=== PATIENT | male | born 1955 | race Caucasian/White ===

== ENCOUNTER → 2017-09-12 10:15 | Outpatient (CLI) | payer OTHER, SELFPAY ==
--- NOTE | 2017-09-12 10:19 | FL_ITS ---
FL upper GI series w/o air HISTORY: ITS.REASON: EPIGASTRIC PAIN ORDERING PHYSICIAN: Florentino Hill MD PATIENT AGE: 62 years Comparison: None FINDINGS: The esophagus, stomach, and duodenum have an unremarkable appearance. There is a small hiatal hernia. There was moderate gastroesophageal reflux noted during the exam. No ulcer or mass evident. No mucosal abnormalities apparent. There is normal peristalsis. The duodenal C-loop is nondisplaced. FLUOROSCOPY TIME : 1 minute and 31 seconds. IMPRESSION: Sliding hiatal hernia with moderate GE reflux
== END ==
PROVIDERS: Family Provider Family Medicine; PCP Family Medicine; Visit Provider Family Medicine
DX: R10.13 Epigastric pain (principal)
CPT/HCPCS: 74241

== ENCOUNTER → 2017-10-09 07:52 | Outpatient (CLI) | payer OTHER, SELFPAY ==
[2017-10-09 09:03] LABS: Glucose,Fasting 100 mg/dL (60-105); Thyroid Stimulating Hormone 0.02 uIU/ml (0.358-3.740)
== END ==
PROVIDERS: Visit Provider Family Medicine
DX: R79.89 Other specified abnormal findings of blood chemistry (principal); R73.9 Hyperglycemia, unspecified
CPT/HCPCS: 36415; 82947; 83036; 84439; 84443

== ENCOUNTER → 2018-06-05 11:52 | Outpatient (CLI) | payer BC, SELFPAY ==
--- NOTE | 2018-06-05 11:57 | XR_ITS ---
EXAM: XR cervical spine 5V HISTORY: The neck, neck pain ITS.REASON: NECK DISORDER ORDERING PHYSICIAN: Florentino Hill MD PATIENT AGE: 63 years COMPARISON: None FINDINGS: Moderate to severe degenerative disc disease is present at C3-C4 with mild retrolisthesis of C3 of 3 mm. Severe degenerative disc disease is present at C5-C6 and C6-C7 with endplate osteophytes at these levels and minimal retrolisthesis of C5 on C6 of 2 to 3 mm. No fracture or dislocation. Moderate foraminal narrowing is present on the right at C3-C4 and mild foraminal narrowing on the right at C5-C6. Left-sided foraminal narrowing also noted at C3-C4 C5-C6 and C6-C7. No fracture or dislocation. No lytic or blastic change. No cervical rib. IMPRESSION: Cervical spondylosis with degenerative disc disease and foraminal narrowing as detailed above
== END ==
PROVIDERS: PCP Family Medicine; Visit Provider Family Medicine
DX: M53.82 Other specified dorsopathies, cervical region (principal)
CPT/HCPCS: 72050

== ENCOUNTER → 2019-04-19 09:07 | Outpatient (CLI) | payer BC, SELFPAY ==
--- NOTE | 2019-04-19 09:10 | XR_ITS ---
PROCEDURE: XR SHOULDER RT MIN 2V CLINICAL INDICATION: Rt shuolder Pain COMPARISON: [id number] VIEWS from 06/21/2016 FINDINGS: Bone density, joint spaces and alignment are normal. There is no acute fracture. Soft tissues are unremarkable. IMPRESSION: No acute findings. Dictated by: Gavino Yates 04/19/2019 09:37 Electronically signed by Gavino Yates in [place] 04/19/2019 09:37
== END ==
PROVIDERS: PCP Family Medicine; Visit Provider Orthopaedic Surgery
DX: M25.511 Pain in right shoulder (principal)
CPT/HCPCS: 73030

== ENCOUNTER → 2019-04-29 09:43 | Outpatient (CLI) | payer BC, SELFPAY ==
[2019-04-29 10:35] VITALS: PULSE 60; PULSE 64
== END ==
PROVIDERS: PCP Family Medicine; Visit Provider Family Medicine
DX: R06.02 Shortness of breath (principal)
CPT/HCPCS: 94060; 94640